=== PATIENT | female | born 1985 | race African-American/Black ===

== ENCOUNTER 2018-10-01 23:38 | Emergency (ER) | payer MEDICAID ==
[~2018-10-01] VITALS: Ht 162.6 cm; Wt 73.0 kg
[2018-10-02] MEDS ORDERED: KETOROLAC 60MG/2ML VIAL IM ONE (02:30)
[2018-10-02 03:31] VITALS: BP 110/75
== END 2018-10-02 02:44 | disposition home or self-care (01) ==
LOC: ER 23:38
DX: M79.10 Myalgia, unspecified site (principal); B86 Scabies; Z59.0 Homelessness
CPT/HCPCS: 96372; 99283; J1885

== ENCOUNTER 2018-10-04 23:47 | Emergency (ER) | payer MEDICAID ==
[~2018-10-04] VITALS: Ht 162.6 cm; Wt 61.0 kg
[2018-10-04 23:53] VITALS: BP 102/58
== END 2018-10-05 03:00 | disposition left against medical advice (07) ==
LOC: ER 23:47
DX: Z53.21 Procedure and treatment not carried out due to patient leaving prior to being seen by health care provider (principal)

== ENCOUNTER 2018-10-09 03:51 | Emergency (ER) | payer MEDICAID ==
[~2018-10-09] VITALS: Ht 165.1 cm; Wt 61.0 kg
[2018-10-09] MEDS ORDERED: IBUPROFEN 800MG TABLET PO ONE (05:00)
[2018-10-09 07:08] VITALS: BP 117/69
== END 2018-10-09 07:21 | disposition home or self-care (01) ==
LOC: EDUNIT# 03:51 → ER 03:51
DX: R07.89 Other chest pain (principal)
CPT/HCPCS: 71045; 81025; 99283

== ENCOUNTER 2018-10-21 15:25 | Emergency (ER) | payer MEDICAID ==
[~2018-10-21] VITALS: Ht 160 cm; Wt 64.0 kg
[2018-10-21] MEDS ORDERED: VISCOUS LIDOCAINE 2% 15 ML UDC PO ONE (18:30)
[2018-10-21] MEDS ORDERED: ASPIRIN 81MG TABLET PO ONE (18:30)
[2018-10-21] MEDS ORDERED: MAGNESIUM/ALUMINUM HYDROXIDE/SIMETHICONE 30ML UDC PO ONE (18:30)
[2018-10-21 19:35] VITALS: BP 120/76
== END 2018-10-21 22:13 | disposition home or self-care (01) ==
LOC: ER 15:25
DX: Z76.5 Malingerer [conscious simulation] (principal); R07.89 Other chest pain
CPT/HCPCS: 71045; 93005; 99284

== ENCOUNTER 2018-11-02 00:01 | Emergency (ER) | payer MEDICAID ==
[~2018-11-02] VITALS: Ht 165.1 cm; Wt 55.0 kg
[2018-11-02 01:47] LABS: CLARITY URINE CLEAR (CLEAR); COLOR URINE YELLOW (YELLOW); KETONES URINE NEGATIVE (NEGATIVE); LEUKOCYTE ESTERASE URINE NEGATIVE (NEGATIVE); NITRITE URINE NEGATIVE (NEGATIVE); OCCULT BLOOD URINE NEGATIVE (NEGATIVE); PH URINE 7.5 (4.5-8.0); PROTEIN URINE NEGATIVE (NEGATIVE); UROBILINOGEN URINE 0.2 E.U./dL (0.2-1.0)
[2018-11-02 02:21] VITALS: BP 128/84
[2018-11-02] MEDS ORDERED: AZITHROMYCIN 500 MG TABLET PO ONE (02:30)
[2018-11-02] MEDS ORDERED: CEFTRIAXONE SODIUM 250 MG/VIAL IM ONE (02:30)
[2018-11-02] MEDS ORDERED: LIDOCAINE HCL 1% 20ML VIAL (Pyxis) INJ INFIL ONE (02:30)
== END 2018-11-02 02:37 | disposition home or self-care (01) ==
LOC: ER 00:01
DX: N98.9 Complication associated with artificial fertilization, unspecified (principal)
CPT/HCPCS: 81003; 81025; 96372; 99283; J0696; J3490; Z7610

== ENCOUNTER 2018-11-07 02:36 | Emergency (ER) | payer MEDICAID ==
[~2018-11-07] VITALS: Ht 165.1 cm; Wt 56.0 kg
[2018-11-07] MEDS ORDERED: ACETAMINOPHEN 325MG TABLET PO ONE (05:15)
[2018-11-07 06:45] LABS: CLARITY URINE CLEAR (CLEAR); COLOR URINE YELLOW (YELLOW); KETONES URINE NEGATIVE (NEGATIVE); LEUKOCYTE ESTERASE URINE NEGATIVE (NEGATIVE); NITRITE URINE NEGATIVE (NEGATIVE); OCCULT BLOOD URINE TRACE (NEGATIVE); PROTEIN URINE NEGATIVE (NEGATIVE); SPECIFIC GRAVITY URINE 1.021 (1.005-1.030)
[2018-11-07] MEDS ORDERED: CEFTRIAXONE SODIUM 250 MG/VIAL IM ONE (07:15)
[2018-11-07 07:29] LABS: *BARBITURATES SCREEN URINE NEGATIVE (NEGATIVE); CANNABINOID URINE SCREEN NEGATIVE (NEGATIVE)
[2018-11-07 07:30] LABS: *AMPHETAMINES SCREEN URINE NEGATIVE (NEGATIVE); *BENZODIAZEPINES SCREEN URINE NEGATIVE (NEGATIVE); *COCAINE SCREEN URINE NEGATIVE (NEGATIVE); METHADONE URINE SCREEN NEGATIVE (NEGATIVE); OPIATES URINE SCREEN NEGATIVE (NEGATIVE); PHENCYCLIDINE URINE SCREEN NEGATIVE (NEGATIVE)
[2018-11-07 07:56] VITALS: BP 109/62
[2018-11-07] MEDS ORDERED: AZITHROMYCIN 500 MG TABLET PO SCH (09:00)
[2018-11-10 04:20] LABS: CHLAMYDIA TRACHOMATIS NAA Negative (Negative); NEISSERIA GONORRHOEAE NAA Negative (Negative)
== END 2018-11-07 07:57 | disposition home or self-care (01) ==
LOC: ER 03:33
DX: N76.0 Acute vaginitis (principal)
CPT/HCPCS: 80305; 81003; 81025; 87210; 87491; 87591; 96372; 99283; J0696; Z7610

== ENCOUNTER 2018-11-08 00:25 | Emergency (ER) | payer MEDICAID ==
[~2018-11-08] VITALS: Ht 162.6 cm; Wt 54.5 kg
[2018-11-08] MEDS ORDERED: IBUPROFEN 600MG TABLET PO ONE (01:30)
[2018-11-08] MEDS ORDERED: ONDANSETRON 4MG ODT PO ONE (01:30)
[2018-11-08 01:34] VITALS: BP 117/60
== END 2018-11-08 01:35 | disposition home or self-care (01) ==
LOC: ER 00:25
DX: R10.2 Pelvic and perineal pain (principal)
CPT/HCPCS: 99283; Q0162

== ENCOUNTER 2018-11-11 00:50 | Emergency (ER) | payer MEDICAID ==
[~2018-11-11] VITALS: Ht 162.6 cm; Wt 58.0 kg
[2018-11-11] MEDS ORDERED: FLUCONAZOLE 150MG TABLET PO ONE (02:15)
[2018-11-11] MEDS ORDERED: AZITHROMYCIN 500 MG TABLET PO ONE (02:15)
[2018-11-11] MEDS ORDERED: CEFTRIAXONE SODIUM 250 MG/VIAL IM ONE (02:15)
[2018-11-11 02:24] LABS: CLARITY URINE CLEAR (CLEAR); COLOR URINE YELLOW (YELLOW); KETONES URINE NEGATIVE (NEGATIVE); LEUKOCYTE ESTERASE URINE NEGATIVE (NEGATIVE); NITRITE URINE NEGATIVE (NEGATIVE); OCCULT BLOOD URINE NEGATIVE (NEGATIVE); PH URINE 6.5 (4.5-8.0); PROTEIN URINE NEGATIVE (NEGATIVE); UROBILINOGEN URINE 0.2 E.U./dL (0.2-1.0)
[2018-11-11 02:57] VITALS: BP 118/82
[2018-11-11] MEDS ORDERED: ACETAMINOPHEN 325MG TABLET PO ONE (03:00)
== END 2018-11-11 02:59 | disposition home or self-care (01) ==
LOC: ER 01:42
DX: N89.8 Other specified noninflammatory disorders of vagina (principal)
CPT/HCPCS: 81003; 81025; 96372; 99283; J0696

== ENCOUNTER 2018-11-24 16:05 | Emergency (ER) | payer MEDICAID ==
[~2018-11-24] VITALS: Ht 162.6 cm; Wt 85.0 kg
[2018-11-24 16:22] VITALS: BP 105/58
== END 2018-11-24 22:11 | disposition left against medical advice (07) ==
LOC: ER 16:05
DX: R51 Headache (principal); Z53.21 Procedure and treatment not carried out due to patient leaving prior to being seen by health care provider

== ENCOUNTER 2018-12-07 05:31 | Emergency (ER) | payer MEDICAID | END 2018-12-07 06:50 | disposition left against medical advice (07) | LOC: ER 05:31 | DX: Z53.21 Procedure and treatment not carried out due to patient leaving prior to being seen by health care provider (principal) ==

== ENCOUNTER 2019-07-21 23:19 | Emergency (ER) | payer MEDICAID ==
[~2019-07-21] VITALS: Ht 162.6 cm; Wt 56.0 kg
[2019-07-22 00:45] VITALS: BP 112/64
== END 2019-07-22 00:45 | disposition home or self-care (01) ==
LOC: ER 23:19
DX: R00.2 Palpitations (principal)
CPT/HCPCS: 81025; 93005; 99283

== ENCOUNTER 2021-04-20 04:20 | Emergency (ER) | payer MEDICAID ==
[~2021-04-20] VITALS: Ht 167.6 cm; Wt 72.6 kg
[2021-04-20] MEDS ORDERED: CEFTRIAXONE SODIUM 500 MG/VIAL IM ONE (05:45)
[2021-04-20] MEDS ORDERED: LIDOCAINE HCL 1% 20ML VIAL (Pyxis) INJ INFIL ONE (05:45)
[2021-04-20 05:53] LABS: *AMPHETAMINES SCREEN URINE NEGATIVE (NEGATIVE); *BARBITURATES SCREEN URINE NEGATIVE (NEGATIVE); *BENZODIAZEPINES SCREEN URINE NEGATIVE (NEGATIVE); *COCAINE SCREEN URINE NEGATIVE (NEGATIVE); METHADONE URINE SCREEN NEGATIVE (NEGATIVE); OPIATES URINE SCREEN NEGATIVE (NEGATIVE)
[2021-04-20 05:54] LABS: CANNABINOID URINE SCREEN NEGATIVE (NEGATIVE); PHENCYCLIDINE URINE SCREEN NEGATIVE (NEGATIVE)
[2021-04-20] MEDS ORDERED: ASPIRIN 81MG TABLET PO ONE (06:00)
[2021-04-20] MEDS ORDERED: NITROGLYCERIN 0.4MG TABLET SL SL PRN (06:00)
[2021-04-20 06:04] LABS: BASOPHILS % 0.7 % (0.0-2.0); EOSINOPHILS % 2.5 % (0.0-5.0); HEMATOCRIT. 32.6 % (36.0-48.0); HEMOGLOBIN. 10.3 g/dL (12.0-16.0); LYMPHOCYTES % 28.9 % (20.0-50.0); MEAN CORPUSCULAR HEMOGLOBIN 26.6 pg (28.0-32.0); MEAN CORPUSCULAR VOLUME 83.7 fL (81.0-99.0); MONOCYTES % 14.2 % (2.0-8.0); NEUTROPHILS % 53.7 % (40.0-76.0); PLATELET 328 x1000/uL (130-400); RED BLOOD CELL COUNT 3.89 mill/uL (4.2-5.4); RED CELL DISTRIBUTION WIDTH 15.1 % (11.6-14.6)
[2021-04-20 06:08] LABS: CHLORIDE 104 mEq/L (98-107)
[2021-04-20 06:12] LABS: HCG SCREEN NEGATIVE
[2021-04-20] MEDS ORDERED: DOXYCYCLINE HYCLATE 100MG CAPSULE PO ONE (06:45)
[2021-04-20] MEDS: LIDOCAINE HCL 1% 10 MG/ML 10ML VIAL INJ SCH ×2 (06:45→07:20)
[2021-04-20] MEDS ORDERED: DOXY100C5 MT (12:02)
[2021-04-20] MEDS ORDERED: IBUP-2028 MT (12:02)
[2021-04-20 12:43] VITALS: BP 128/79
[2021-04-22 04:09] LABS: NEISSERIA GONORRHOEAE NAA Negative (Negative)
== END 2021-04-20 12:52 | disposition home or self-care (01) ==
LOC: ER 04:20
DX: R07.89 Other chest pain (principal); M79.604 Pain in right leg; N89.8 Other specified noninflammatory disorders of vagina
CPT/HCPCS: 36415; 71045; 73502; 73560; 73610; 73630; 80053; 80305; 81025; 83880; 84484; 84703; 85025; 87210; 87491; 87591; 93005; 96372; 99285; J0696; J3490; Z7610

== ENCOUNTER 2021-06-14 23:39 | Emergency (ER) | payer MEDICAID ==
[~2021-06-14] VITALS: Ht 177.8 cm; Wt 55.0 kg
[~2021-06-14 23:39] MED LIST: DOXY100C5 MT; IBUP-2028 MT
[2021-06-15] VITALS: BP 110/75
[2021-06-15] MEDS ORDERED: PREDNISONE 20MG TABLET PO STA (00:06)
[2021-06-15] MEDS ORDERED: IPRATROPIUM BROMIDE (0.02%) 0.5MG/2.5ML NEB HHN STA (00:06)
[2021-06-15] MEDS ORDERED: ALBUTEROL (0.083%) 2.5MG/3ML NEB HHN SCH (00:30)
== END 2021-06-15 02:26 | disposition home or self-care (01) ==
LOC: ER 23:39
DX: R07.89 Other chest pain (principal); J45.909 Unspecified asthma, uncomplicated
CPT/HCPCS: 71045; 93005; 99283

== ENCOUNTER → 2022-01-16 | Emergency (ER) | payer MEDICAID, OTHER ==
[~2022-01-16] VITALS: Ht 165.1 cm; Wt 79.9 kg
[~2022-01-16] MED LIST changes: +CEFTRIAXONE SODIUM 500 MG/VIAL IM ONE
[2022-01-16 23:14] VITALS: BP 124/72
== END ==
LOC: ER 23:53
DX: K02.9 Dental caries, unspecified (principal); R07.89 Other chest pain
CPT/HCPCS: 71045; 99283; J0696

== ENCOUNTER 2023-12-09 20:14 | Emergency (ER) | payer MEDICAID, OTHER ==
[~2023-12-09] VITALS: Ht 165.1 cm; Wt 50.0 kg
[~2023-12-09 20:14] MED LIST changes: -CEFTRIAXONE SODIUM 500 MG/VIAL IM ONE
[2023-12-09 21:28] VITALS: O2SAT 100
[2023-12-09] MEDS ORDERED: BO1 TP (21:29)
[2023-12-09] MEDS: ACETAMINOPHEN 325MG TABLET PO ONE (22:05)
[2023-12-09] MEDS ORDERED: NAPR-1176 MT (22:32)
[2023-12-09 22:55] VITALS: BP 129/92; PULSE 84; RESP 15; TEMP 98.6
== END 2023-12-09 22:56 | disposition home or self-care (01) ==
LOC: ER 20:14
DX: M79.675 Pain in left toe(s) (principal); J45.909 Unspecified asthma, uncomplicated
CPT/HCPCS: 73660; 99283

== ENCOUNTER 2023-12-27 13:06 | Emergency (ER) | payer OTHER ==
[~2023-12-27] VITALS: Ht 167.6 cm; Wt 75.0 kg
[~2023-12-27 13:06] MED LIST changes: +NAPR-1176 MT
[2023-12-27 13:12] VITALS: O2SAT 99
[2023-12-27 13:14] VITALS: TEMP 98.7
[2023-12-27] MEDS: KETOROLAC 30MG/ML VIAL IM ONE (14:00)
[2023-12-27] MEDS ORDERED: IBUP-2030 MT (14:29)
[2023-12-27] MEDS ORDERED: AMOX1TAB16 MT (14:29)
[2023-12-27 14:40] VITALS: BP 128/77; PULSE 70; RESP 15
== END 2023-12-27 14:59 | disposition home or self-care (01) ==
LOC: ER 13:06
DX: K04.7 Periapical abscess without sinus (principal); J45.909 Unspecified asthma, uncomplicated
CPT/HCPCS: 81025; 99283; J1885

== ENCOUNTER 2024-01-01 15:10 | Emergency (ER) | payer OTHER ==
[~2024-01-01] VITALS: Ht 165.1 cm; Wt 58.0 kg
[~2024-01-01 15:10] MED LIST changes: +AMOX1TAB16 MT; +IBUP-2030 MT
[2024-01-01 15:21] VITALS: O2SAT 100
[2024-01-01 15:23] VITALS: TEMP 98.4
[2024-01-01] MEDS ORDERED: CHLO473M2 MT (16:38)
[2024-01-01] MEDS ORDERED: AMOX1TAB16 MT (16:38)
[2024-01-01] MEDS ORDERED: BO1 TP (16:38)
[2024-01-01 17:11] VITALS: BP 125/77; PULSE 79; RESP 16
== END 2024-01-01 17:16 | disposition home or self-care (01) ==
LOC: ER 15:10
DX: K04.7 Periapical abscess without sinus (principal); J45.909 Unspecified asthma, uncomplicated
CPT/HCPCS: 99283